=== PATIENT | female | born 1995 | race Two or more races ===

== ENCOUNTER 2025-08-04 11:18 | Emergency (ER) | payer MEDICAID, SELFPAY ==
[2025-08-04 11:20] VITALS: BMI 33.3
--- NOTE | 2025-08-04 11:26 | EKG_ITS ---
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
[2025-08-04 11:34] VITALS: BP 112/74; PULSE 60; RESP 18; TEMP 36.7; O2SAT 100
--- NOTE | 2025-08-04 11:40 | PD.EDRME ---
Rapid Medical Screening Exam [facility] Arrival date/time: 08/04/25 11:18 29-year-old female with no known medical history presents to the emergency room with a chief complaint of nausea, vomiting, diarrhea, diffuse abdominal pain throughout her abdomen since 6 AM this morning. I have greeted and performed a focused initial assessment of this patient. A comprehensive ED assessment and evaluation of the patient, analysis of all test results, and completion of the medical decision making process will be conducted by additional ED providers. Chief Complaint: Abdominal Pain Time Seen by Provider: 08/04/25 11:24 Vital signs: Vital Signs Temperature 98.1 F 08/04/25 11:34 Pulse Rate 60 08/04/25 11:34 Respiratory Rate 18 08/04/25 11:34 Blood Pressure 112/74 08/04/25 11:34 Pulse Oximetry (%) 100 08/04/25 11:34 Oxygen Delivery Method Room Air 08/04/25 11:34 Vital signs reviewed by provider: Yes
[2025-08-04] MEDS: ONDANSETRON ODT 4 MG TABRAP PO (11:44)
[2025-08-04 12:26] LABS: Basophils # (Auto) 0.0 Thou/mm3 (0.0-0.2); Basophils % (Auto) 0 % (0-2.5); Eosinophils # (Auto) 0.0 Thou/mm3 (0.0-0.5); Eosinophils % (Auto) 0 % (0-10); Hematocrit 40.2 % (36.0-46.0); Hemoglobin 13.2 g/dL (12.0-16.0); Immature Granulocytes Auto 0.05 Thou/mm3 (0.00-0.00); Lymphocytes # (Auto) 0.6 Thou/mm3 (1.0-4.8); Lymphocytes % (Auto) 6 % (10-50); Mean Corpuscular HGB Conc 32.8 g/dl (31.0-37.0); Mean Corpuscular Hemoglobin 28.1 pg (25.0-35.0); Mean Corpuscular Volume 86 fL (80-100); Monocytes # (Auto) 0.2 Thou/mm3 (0.0-0.8); Monocytes % (Auto) 2 % (0-12); Neutrophils # (Auto) 9.5 Thou/mm3 (1.8-7.7); Neutrophils % (Auto) 91 % (37-80); Nucleated Red Blood Cell # 0.00 Thou/mm3 (0.00-0.00); Nucleated Red Blood Cell % 0 /100 WBC (0); Platelet Count 364 Thou/mm3 (140-440); RDW Standard Deviation 38.5 fL (36.4-46.3); Red Blood Count 4.69 Miln/mm3 (4.00-5.20); White Blood Count 10.4 Thou/mm3 (3.6-11.0)
[2025-08-04 12:45] LABS: Alanine Aminotransferase 15 U/L (10-49); Albumin, Serum 5.2 gm/dL (3.5-5.0); Albumin/Globulin Ratio 2.4 (1.2-2.2); Alkaline Phosphatase 73 U/L (46-116); Anion Gap 15 (7-16); Aspartate Amino Transferase 22 U/L (0-34); BUN/Creatinine Ratio 15 Ratio (12-20); Bilirubin,Total 0.5 mg/dL (0.3-1.2); Blood Urea Nitrogen 12 mg/dL (9-23); Calcium 9.4 mg/dL (8.3-10.6); Calcium (Corrected) 9.4 mg/dL (8.5-10.1); Carbon Dioxide 20.1 mMol/L (20.0-31.0); Chloride 107 mMol/L (98-107); Creatinine (Component) 0.8 mg/dL (0.6-1.3); Estimated Creatinine Clearance 114.4 mL/min (>60); Globulin 2.2 gm/dL (2.3-3.5); Glucose 136 mg/dL (74-106); Lipase 26 U/L (12-53); Osmolality,Calculated 284 (275-295); Potassium 3.7 mMol/L (3.4-5.1); Sodium 142 mMol/L (136-145); Total Protein 7.4 gm/dL (5.7-8.2); eGFR > 60 See Note
--- NOTE | 2025-08-04 13:31 | EDNOTE_ITS ---
ED Abdominal Pain RME/HPI General Chief Complaint: Abdominal Pain Stated complaint: ABD PAIN AND VOMITING Time seen by provider: 08/04/25 11:24 Arrival date/time: 08/04/25 11:18 Limitations: no limitations RME / HPI RME / HPI narrative: 08/04/25 11:18 29-year-old female with no known medical history presents to the emergency room with a chief complaint of nausea, vomiting, diarrhea, diffuse abdominal pain throughout her abdomen since 6 AM this morning. I have greeted and performed a focused initial assessment of this patient. A comprehensive ED assessment and evaluation of the patient, analysis of all test results, and completion of the medical decision making process will be conducted by additional ED providers. Dr. Olea evaluation. Patient is a 29-year-old female, that is in the emergency department with concerns for nausea vomiting diarrhea diffuse abdominal pain that started earlier today. Denies fevers chills chest pain palpitations dysuria hematuria melena bloody stools drugs alcohol smoking recent travel sick contacts. 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 No allergies to medications. Related Data Previous Rx's ?Medication ?Instructions ?Recorded hydrocodone 5 mg-acetaminophen 325 1 tab PO Q6H PRN pa in #15 tabs 02/03/23 mg tablet ibuprofen 600 mg tablet 600 mg PO Q6H PRN pain #30 t abs 02/03/23 ibuprofen 600 mg tablet 600 mg PO TID PRN pain #30 t abs 06/28/23 rimegepant 75 mg disintegrating 75 mg PO Q OTHER DAY P RN migraine 07/17/23 tablet (Nurtec ODT) headache #16 tabs diphenhydramine HCl 25 mg capsule 25 mg PO TID PRN all ergy symptoms 04/03/24 #14 caps ondansetron 4 mg disintegrating 4 mg PO Q12H PRN nause a and 08/04/25 tablet vomiting #7 tabs Allergies Allergy/AdvReac Type Severity Reaction Status Date / Time ORANGES Allergy Severe SORES AND Uncoded 08/04/25 11:24 MOUTH ED Exam General Limitations: Present no limitations General appearance: Present alert Head Head exam: Present atraumatic Eye Eye exam: Present normal appearance ENT ENT exam: Present normal exam Neck Neck exam: Present normal inspection Chest Chest inspection: Present symmetric chest wall rise Respiratory Respiratory exam: Absent respiratory distress Cardiovascular Cardiovascular exam: Present regular rate Abdominal Exam Abdominal exam: Present soft; Absent distention, tenderness, guarding or rebound Extremities Exam Extremities exam: Present normal inspection Neurological Exam Neurological exam: Present alert and other Psychiatric Psychiatric exam: Present normal affect and normal mood Skin Skin exam: Present warm and dry Course Quality Measures none Orders Category Date Time Status EKG (ED ONLY) *Do not use* NOW Care 08/04/25 11:26 Completed EKG (ED Only) Stat Exams 08/04/25 11:26 Draft CBC Stat Lab 08/04/25 11:53 Completed CMP [Comprehensive Metabolic Panel] Stat Lab 08/04/25 11:53 Completed HCG Qualitative,Urine Stat Lab 08/04/25 13:45 Completed Lipase Stat Lab 08/04/25 11:53 Completed UA [Urinalysis] Stat Lab 08/04/25 13:45 Completed Urine Culture Stat Lab 08/04/25 13:45 Received Ondansetron Odt [Zofran Odt] Med 08/04/25 11:39 Discontinued 4 mg PO X1 ONE Vital Signs Vital signs: Vital Signs Temperature 98.1 F 08/04/25 11:34 Pulse Rate 60 08/04/25 11:34 Respiratory Rate 18 08/04/25 11:34 Blood Pressure 112/74 08/04/25 11:34 Pulse Oximetry (%) 100 08/04/25 11:34 Oxygen Delivery Method Room Air 08/04/25 11:34 Abdominal Pain MDM MDM Narrative MDM Narrative:: Patient is a 29-year-old female is in the emerged from concerns for abdominal pain nausea vomiting and diarrhea. Vital signs and exam as listed. Concern for viral syndrome, enteritis. Also concern for pancreatitis urinary tract infection among others. Prior provider evaluated patient. Ordered labs offered medication for symptom relief Labs without acute hematologic abnormality, no leukocytosis however does have a left shift. No significant acute electrolyte nor other metabolic derangement. Lipase not elevated. EKG performed at 11:40 AM today notable for sinus rhythm, normal intervals, nonspecific T wave changes, not a cardiac alert. UA without evidence of infection. On reevaluation patient hemodynamically stable not in distress tolerating oral intake, symptoms well-controlled. Will discharge home with close return precautions follow-up with primary care doctor. All questions answered Patient data External records reviewed:: [facility] previous records Clinical information provided by:: patient Social determinants that could affect healthcare access:: none Patient has the following chronic illnesses:: 90 How is presenting disease/condition affected by chronic disease/condition?: no chronic disease Evaluation data The following diagnostics were reviewed and interpreted by me:: lab results and EKG tracing(s) Lab and/or radiology exams considered but not ordered:: None Interpretation Summary: See MDM Medications / Prescriptions Medications or Prescriptions considered but not ordered:: None Medication administrations:: Medication Administration History Discontinued Medications Ondansetron HCl (Ondansetron Odt 4 Mg Tabrap) 4 mg PO X1 ONE; Protocol Stop: 08/04/25 11:40 Last Admin: 08/04/25 11:44 Dose: 4 mg Documented By: OA See above Consultations Consultation(s) initiated? (list below): No Diagnosis Differential diagnosis abdominal pain: other Most likely diagnosis given after review of the tests above:: See above Admission Indicated Admission indicated?: not indicated Admission Request Was there a request for admission?: No Disposition Plan Disposition Plan: Discharge Discharge Attestation Discharge Attestation: The patient and all family members were given an opportunity to ask questions and understood the discharge instructions. Discharge instructions specifically effects, indications for sooner follow up or return to the emergency department, and the expected course of current diagnosis. Patient condition: Stable Discharge Plan Plan Patient Disposition: HOME (Self Care) Prescriptions/Referrals Prescriptions/Med Rec: New ondansetron 4 mg tablet,disintegrating 4 mg PO Q12H PRN (Reason: nausea and vomiting) Qty: 7 0RF No Action ibuprofen 600 mg tablet 600 mg PO Q6H PRN (Reason: pain) Qty: 30 0RF hydrocodone-acetaminophen 5-325 mg tablet 1 tab PO Q6H MDD 4 PRN (Reason: pain) Qty: 15 0RF ibuprofen 600 mg tablet 600 mg PO TID PRN (Reason: pain) Qty: 30 0RF Nurtec ODT 75 mg tablet,disintegrating 75 mg PO Q OTHER DAY PRN (Reason: migraine headache) Qty: 16 0RF diphenhydramine HCl 25 mg capsule 25 mg PO TID PRN (Reason: allergy symptoms) Qty: 14 0RF Referrals: No Primary/Family,Physician [Primary Care Provider] - In 1 week Problem List Clinical Impression: Vomiting, Diarrhea Patient/Caregiver Discharge Instructions Education Materials: ED Diet for Vomiting or ... Additional Instructions: Please eat a bland diet, hydrate well. Please follow-up with primary care doctor within 1 to 2 days. Return immediately if worsening symptoms or new symptoms of concern. Print Language: Ghanaian Stand Alone Forms: Catia Award Info., Patient Portal Info Letter
[2025-08-04 13:51] LABS: Collection Type, Urine Clean Catch
[2025-08-04 13:58] LABS: HCG Qualitative,Urine Negative
[2025-08-04 14:01] LABS: Bilirubin,Urine Negative (Negative); Blood,Urine Negative (Negative); Clarity,Urine Clear (Clear/Hazy); Color,Urine Yellow (Lt Yel-Yel); Glucose, Urine Negative (Negative); Ketones,Urine 3+ (Negative); Leukocyte Esterase,Urine Negative (Negative); Nitrite,Urine Negative (Negative); PH,Urine 8.0 (5.0-7.0); Protein,Urine 1+ (Neg - Trace); RBC,Urine 8 /hpf (0-3); Specific Gravity,Urine 1.033 (1.001-1.035); Squamous Epithelial Cell,Urine 1 /hpf (0-5); Urobilinogen,Urine Negative mg/dL (0.0-1.0); WBC,Urine < 1 /hpf (0-5)
== END 2025-08-04 14:38 | disposition home or self-care (01) ==
PROVIDERS: Nurse Practitioner Family; Emergency Provider Emergency Medicine
DX: R11.10 Vomiting, unspecified (principal); R19.7 Diarrhea, unspecified
CPT/HCPCS: 36415; 80053; 81001; 81025; 83690; 85025; 87077; 87086; 87186; 93005; 99281; Q0162